=== PATIENT | male | born 1995 | race Caucasian/White ===

== ENCOUNTER 2016-12-06 21:08 | Emergency (ER) | payer BC ==
[2016-12-06 21:19] VITALS: BP 131/63
--- NOTE | 2016-12-06 21:31 | EDM.PDOC ---
ED HPI Trauma - General Chief Complaint: Upper Extremity Injury/Pain Stated Complaint: FELL ON ICE Time Seen by Provider: 12/06/16 21:16 Source: Reports: Patient History Limitations: Reports: No limitations - History of Present Illness INITIAL COMMENTS - FREE TEXT/NARRATIVE: this is a 21-year-old male. This evening he slipped on the ice and fell backwards and he was back and he is not certain whether he put out his left hand to brace himself but afterwards he had left forearm pain and left elbow pain. This happened approximately one and a half hours ago. He denies hitting his head he denies loss of consciousness. He denies any neck or upper back or lower back pain or buttocks pain. He is mostly concerned about his forearm and his elbow. He denies any wrist pain or hand pain he makes a fist without difficulty he denies any shoulder pain or clavicle pain. Allergies/ADRs: Allergies No Known Allergies Allergy (Verified 12/06/16 21:15) Home Medications: Ambulatory Orders . 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13 Other Dermatologic History: urticaria presently - Past Surgical History HEENT Surgical History: Reports: Tonsillectomy GI Surgical History: Reports: Cholecystectomy, Colonoscopy, EGD Social & Family History - Family History Family Medical History: Noncontributory - Tobacco Use Smoking Status *Q: Never Smoker Second Hand Smoke Exposure: No - Caffeine Use Caffeine Use: Reports: Coffee - Alcohol Use Days Per Week of Alcohol Use: 0 - Recreational Drug Use Recreational Drug Use: No - Living Situation & Occupation Living situation: Reports: single, alone Occupation: employed ([employer]) Review of Systems - Review of Systems Review Of Systems: See Below Constitutional: Reports: no symptoms Eyes: Reports: no symptoms Ears: Reports: no symptoms Nose: Reports: no symptoms Mouth/Throat: Reports: no symptoms Respiratory: Reports: no symptoms Cardiovascular: Reports: no symptoms GI/Abdominal: Reports: No symptoms Genitourinary: Reports: no symptoms Musculoskeletal: Reports: other (as per history of present illness) Skin: Reports: no symptoms Neurological: Reports: no symptoms Psychiatric: Reports: no symptoms Trauma Exam - Physical Exam Exam: See Below Exam Limited By: No limitations General Appearance: Reports: alert, WD/WN, moderate distress Head: Reports: atraumatic, normocephalic Eyes: bilateral eye: normal inspection Ears: Reports: normal external exam Nose: Reports: normal inspection Throat/Mouth: Reports: Normal inspection, Normal lips, Normal voice Neck: Reports: non-tender, full range of motion Respiratory Exam: Reports: no respiratory distress, lungs clear, normal breath sounds, other (no rib tenderness noted on the left of the right on palpation in the back) Cardiovascular: Reports: regular rate, rhythm, no murmur GI/Abdominal: Reports: soft Back: Reports: full range of motion, other (he denies any tenderness of the cervical spine, thoracic spine or lumbar spine, there is no midline tenderness on palpation of the spinous processes and there is no paraspinal muscle tenderness noted) Extremities: Reports: other (his left upper extremity is not able to supinate his left hand without pain in his elbow, he is able to move his wrist though that hurts in the elbow as well he is able to make a fist without difficulty neurovascular is intact in all 5 digits he denies any shoulder pain on palpation denies any clavicle pain on palpation, the right upper extremity is atraumatic). Denies: normal range of motion Neurologic: Reports: no motor/sensory deficits Skin: Reports: Normal color, Warm/dry - [place] Coma Score Best Eye Response (Samina): (4) open spontaneously Best Verbal Response (Samina): (5) oriented Best Motor Response (Samina): (6) obeys commands Samina Total: 15 Course - Vital Signs Last Recorded V/S: Last Vital Signs Temp 98.3 F 12/06/16 21:17 Pulse 95 12/06/16 21:17 Resp 18 12/06/16 21:17 BP 131/63 12/06/16 21:17 Pulse Ox 100 12/06/16 21:17 - Orders/Labs/Meds Orders: Active Orders 24 hr Category Date Time Status Elbow Min 3V Lt [CR] Stat Exams 12/06/16 21:39 Taken Forearm 2V Lt [CR] Stat Exams 12/06/16 21:21 Taken Wrist Comp Min 3V Lt [CR] Stat Exams 12/06/16 21:21 Taken - Radiology Interpretation Free Text/Narrative:: x-rays of the left wrist and forearm and elbow do not show any acute fractures. I would consider repeat the x-ray in approximately a week as he appears to have increased elbow pain with supination of his hand - Re-Assessments/Exams Free Text/Narrative Re-Assessment/Exam: 12/06/16 22:13 I spoke to the patient regarding the x-rays. I do not see any acute fractures but he needs to followup with his family doctor later this week for recheck and if he still continues to have pain he might need a re x-ray. Departure - Departure Time of Disposition: 22:14 Disposition: Home, Self-Care 01 Condition: good Clinical Impression: Left elbow contusion Qualifiers: Encounter type: initial encounter Qualified Code(s): S50.02XA - Contusion of left elbow, initial encounter Contusion of left forearm Qualifiers: Encounter type: initial encounter Qualified Code(s): S50.12XA - Contusion of left forearm, initial encounter Left wrist sprain Qualifiers: Encounter type: initial encounter Qualified Code(s): S63.502A - Unspecified sprain of left wrist, initial encounter Referrals: Can Martinez MD [Primary Care Provider] - Forms: ED Department Discharge Additional Instructions: wear the sling for the next couple of days, ice the forearm down when you have a small hematoma 20 minutes every couple of hours, get some Aleve or ibuprofen and take it for the soreness and pain, followup with your family doctor later this week for recheck and possible repeat x-ray if your pain continues and symptoms continue, return to the ER if needed - My Orders Last 24 Hours: My Active Orders 12/06/16 21:21 Forearm 2V Lt [CR] Stat Wrist Comp Min 3V Lt [CR] Stat 12/06/16 21:39 Elbow Min 3V Lt [CR] Stat - Assessment/Plan Last 24 Hours: My Active Orders 12/06/16 21:21 Forearm 2V Lt [CR] Stat Wrist Comp Min 3V Lt [CR] Stat 12/06/16 21:39 Elbow Min 3V Lt [CR] Stat
--- NOTE | 2016-12-09 07:15 | CR ---
Left forearm: Two views of the left forearm were obtained. Comparison: No previous forearm study. No fracture or other abnormality is seen. Impression: 1. No abnormality is identified on two-view left forearm study. Diagnostic code #1
--- NOTE | 2016-12-09 07:15 | CR ---
Left wrist: Four views of the left wrist were obtained. Comparison: No previous wrist exam. Joint spaces are maintained. No fracture, dislocation or other bony abnormality is identified. Impression: 1. No abnormality is identified on left wrist exam. Diagnostic code #1
--- NOTE | 2016-12-09 08:05 | CR ---
Left elbow: Three views of the left elbow were obtained. Comparison: No previous elbow study. No joint effusion is seen. No fracture or other abnormality is identified. Impression: 1. No abnormality is identified on left elbow study. Diagnostic code #1
== END 2016-12-06 22:30 | disposition home or self-care (01) ==
LOC: JD.ED 21:08
DX: S63.502A Unspecified sprain of left wrist, initial encounter (principal); S50.12XA Contusion of left forearm, initial encounter; S50.02XA Contusion of left elbow, initial encounter; W00.0XXA Fall on same level due to ice and snow, initial encounter; Z90.49 Acquired absence of other specified parts of digestive tract; Z98.890 Other specified postprocedural states
CPT/HCPCS: 73080-26-LT; 73080-LT; 73090-26-LT; 73090-LT; 73110-26-LT; 73110-LT; 99282; 99283

== ENCOUNTER 2017-10-11 12:49 | Emergency (ER) | payer BC ==
[2017-10-11] MEDS ORDERED: Lidocaine 1% 50 ML MDV INJECT ONE (13:58)
[2017-10-11 13:59] VITALS: BP 116/78
--- NOTE | 2017-10-11 13:59 | EDM.PDOC ---
ED HPI GENERAL MEDICAL PROBLEM - General Chief Complaint: Laceration Stated Complaint: HAND LAC Time Seen by Provider: 10/11/17 13:50 Source of Information: Reports: Patient History Limitations: Reports: No Limitations - History of Present Illness INITIAL COMMENTS - FREE TEXT/NARRATIVE: 21-year-old male presents for evaluation treatment of a laceration to the right hand. Patient reports that he was taking a new hunting knife out of the sheath when he accidentally cut his right hand in between the first and second fingers. He reports no numbness or tingling. No decreased range of motion. Tetanus is up-to-date. Patient is right-handed. - Related Data Allergies Allergy/AdvReac Type Severity Reaction Status Date / Time No Known Allergies Allergy Verified 12/06/16 21:15 Home Meds: Home Meds ALPRAZolam [Xanax] 1 mg PO BID 10/11/17 [History] Vortioxetine Hydrobromide [Trintellix] 20 mg PO DAILY 10/11/17 [History] Past Medical History - Past Health History Medical/Surgical History: Denies Medical/Surgical History HEENT History: Reports: Allergic Rhinitis Other HEENT History: seasonal allergies Other Respiratory History: seasonal allergies Gastrointestinal History: Reports: Other (See Below) Other Gastrointestinal History: endoscopy Neurological History: Reports: Other (See Below) 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13 Psychiatric History: Reports: Anxiety Other Dermatologic History: urticaria presently - Past Surgical History GI Surgical History: Reports: Cholecystectomy Social & Family History - Family History Family Medical History: Noncontributory - Tobacco Use Smoking Status *Q: Never Smoker Second Hand Smoke Exposure: No - Caffeine Use Caffeine Use: Reports: Coffee, Energy Drinks, Soda - Alcohol Use Days Per Week of Alcohol Use: 0 - Recreational Drug Use Recreational Drug Use: No - Living Situation & Occupation Living situation: Reports: Single, Alone Occupation: Employed ED ROS GENERAL - Review of Systems Review Of Systems: See Below Musculoskeletal: Reports: Other (no decreased ROM) Skin: Reports: Wound (right hand in between 1st and 2nd fingers) Neurological: Denies: Numbness, Tingling ED EXAM, SKIN/RASH Exam: See Below Exam Limited By: No Limitations General Appearance: Alert, WD/WN, No Apparent Distress Respiratory/Chest: No Respiratory Distress Cardiovascular: Normal Peripheral Pulses, Regular Rate, Rhythm Peripheral Pulses: 2+: Radial (R) Extremities: Normal Inspection, Normal Range of Motion (right hand), Normal Capillary Refill Neurological: Alert, Oriented, Normal Cognition Psychiatric: Normal Affect, Normal Mood Skin: Warm, Dry, Normal Color, Wound/Incision Location, Skin: Upper Extremity, Right (0.5cm laceration to the right lateral hand in between the 1st and 2nd fingers) Characteristics: Linear ED SKIN PROCEDURES - Laceration/Wound Repair Right Hand Lac/Wound length In cm: 0.5 Appearance: Subcutaneous Distal NVT: Neuro & Vascular Intact, No Tendon Injury Local Anesthesia - Lidocaine (Xylocaine): 1% Plain Local Anesthetic Volume: 1cc Skin Prep: Chlorhexidine (Hibiciens), Saline, Sterile Drape Exploration/Debridement/Repair: Other Closed with: Sutures Suture Size: 4-0 # of Sutures: 2 Suture Type: Silk, Interrupted, Simple Sterile Dressing Applied: Nurse Tetanus Status Addressed: Yes Complications: No Course - Vital Signs Last Recorded V/S: Last Vital Signs Temp 36.7 C 10/11/17 13:56 Pulse 63 10/11/17 13:56 Resp 16 10/11/17 13:56 BP 116/78 10/11/17 13:56 Pulse Ox 100 10/11/17 13:56 - Orders/Labs/Meds Meds: Medications Discontinued Medications Generic Name Dose Route Start Last Admin Trade Name Hemanth PRN Reason Stop Dose Admin Lidocaine HCl 50 ml 10/11/17 13:58 10/11/17 14:03 Xylocaine 1% INJECT 10/11/17 13:59 50 ml ONETIME ONE Administration - Re-Assessments/Exams Free Text/Narrative Re-Assessment/Exam: 10/11/17 14:32 2 sutures placed to the right hand. Patient tolerated this well. He reported that he did not get adequate anesthesia but declined any more and we were able to place the sutures without problem. Discharge instructions as documented. Departure - Departure Time of Disposition: 14:36 Disposition: Home, Self-Care 01 Condition: Good Clinical Impression: Laceration - Discharge Information Instructions: Laceration Care, Adult, [id number] Referrals: Can Martinez MD [Primary Care Provider] - Hilda Prater NP [Nurse Practitioner] - Forms: ED Department Discharge Additional Instructions: [id number] Tylenol or Motrin as needed for pain relief. wash with gentle soap and water twice a day. Antibacterial ointment such as Neosporin or bacitracin twice a day. Keep the wound covered. Have the sutures removed in 10 days. the [facility] clinic located on the side of the hospital soap and 8 AM to 5 PM Friday through Friday and will remove the sutures for free. Call [phone] to schedule with a provider there. Recommend Evelyne Singleton or Hilda Prater. Monitor for signs of infection such as increased swelling, redness or pus. Present today clinic or the ER should these develop. Please return to ER if your symptoms change or worsen.
== END 2017-10-11 14:45 | disposition home or self-care (01) ==
LOC: JD.ED 12:49
DX: S61.411A Laceration without foreign body of right hand, initial encounter (principal); F41.9 Anxiety disorder, unspecified; W26.0XXA Contact with knife, initial encounter
CPT/HCPCS: 12001; 99282-25; 99283-25